=== PATIENT | male | born 1985 | race Two or more races ===

== ENCOUNTER 2017-05-27 10:29 | Emergency (ER) | payer SELFPAY ==
[2017-05-27 10:35] VITALS: BP 144/91
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
--- NOTE | 2017-05-27 11:50 | RADIOLOGY REPORT (SQ) ---
EXAM DESCRIPTION: ANKLE LEFT COMPLETE COMPLETED DATE/TIME: 05/27/2017 11:29 am REASON FOR STUDY: left ankle pain COMPARISON: None. NUMBER OF VIEWS: Three views. TECHNIQUE: AP, lateral, and oblique radiographic images acquired of the left ankle. LIMITATIONS: None. FINDINGS: MINERALIZATION: Normal. BONES: No acute fracture or dislocation. No worrisome bone lesions. JOINTS: Ankle mortise intact. SOFT TISSUES: Slight soft tissue swelling. OTHER: No other significant finding. IMPRESSION: No acute bony change. No acute fracture or dislocation. TECHNICAL DOCUMENTATION: JOB ID: [id number] [employer]- All Rights Reserved Reading location - IP/workstation name: [email or web address]
== END 2017-05-27 12:37 | disposition home or self-care (01) ==
LOC: ER 10:29
DX: M25.572 Pain in left ankle and joints of left foot (principal); S93.402A Sprain of unspecified ligament of left ankle, initial encounter; Y04.0XXA Assault by unarmed brawl or fight, initial encounter; Y92.59 Other trade areas as the place of occurrence of the external cause; J45.909 Unspecified asthma, uncomplicated; F17.200 Nicotine dependence, unspecified, uncomplicated; Z91.013 Allergy to seafood
CPT/HCPCS: 99283

== ENCOUNTER → 2019-10-20 | Outpatient (CLI) | payer SELFPAY ==
[2019-10-20 13:15] VITALS: BP 131/71
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
== END ==
LOC: RDC 12:29
PROVIDERS: ATTEND Nurse Practitioner Family
DX: Z20.828 Contact with and (suspected) exposure to other viral communicable diseases (principal); J45.909 Unspecified asthma, uncomplicated; Z91.013 Allergy to seafood; F17.200 Nicotine dependence, unspecified, uncomplicated
CPT/HCPCS: 87635; 99201; 99211; C9803